=== PATIENT | female | born 1970 | race Caucasian/White ===

== ENCOUNTER 2022-03-08 20:11 | Emergency (ER) | payer OTHER ==
[~2022-03-08] VITALS: Ht 162.6 cm; Wt 77.0 kg
[2022-03-08] MEDS ORDERED: LABETALOL HCL VIAL 20 MG/4 ML VIAL IV ONE (21:00)
[2022-03-08] MEDS: LABETALOL 5MG/ML SYR 20 MG/4 ML SYRINGE IV NR (21:15)
[2022-03-08 21:16] LABS: HEMATOCRIT. 42.3 % (36.0-48.0); HEMOGLOBIN. 13.9 g/dL (12.0-16.0); MEAN CORPUSCULAR HEMOGLOBIN 29.7 pg (28.0-32.0); MEAN CORPUSCULAR VOLUME 90.4 fL (81.0-99.0); MEAN PLATELET VOLUME 9.2 fl (7.4-10.4); PLATELET 112 x1000/uL (130-400); RED BLOOD CELL COUNT 4.68 mill/uL (4.2-5.4); RED CELL DISTRIBUTION WIDTH 15.7 % (11.6-14.6)
[2022-03-08 21:24] LABS: CHLORIDE 101 mEq/L (98-107)
[2022-03-08 21:34] LABS: ETHANOL BLOOD < 10 mg/dL
[2022-03-08 22:08] LABS: PLATELET ESTIMATE DECREASED
[2022-03-08] MEDS ORDERED: HYDRALAZINE 20MG/ML VIAL IV ONE (22:45)
[2022-03-08] MEDS ORDERED: CLONIDINE 0.1MG TABLET PO NR (23:00)
[2022-03-08] MEDS ORDERED: MORPHINE SULFATE 4 MG/ML CPJ (NOT FOR IM USE) IV ONE ×2 (23:00→23:30)
[2022-03-08] MEDS ORDERED: ONDANSETRON HCL 4MG/2ML INJ IV ONE (23:15)
[2022-03-08] MEDS ORDERED: ACETAMINOPHEN 325MG TABLET PO ONE (23:45)
[2022-03-09] MEDS: LABETALOL 5MG/ML SYR 20 MG/4 ML SYRINGE IV NR ×2 (00:26→00:32)
[2022-03-09 00:50] VITALS: BP 187/73
== END 2022-03-09 02:00 | disposition short-term general hospital (02) ==
LOC: ER 20:11 → CANBEDREQ 03-09 14:10
DX: R51.9 Headache, unspecified (principal); M54.2 Cervicalgia; R11.2 Nausea with vomiting, unspecified; E11.22 Type 2 diabetes mellitus with diabetic chronic kidney disease; I12.0 Hypertensive chronic kidney disease with stage 5 chronic kidney disease or end stage renal disease; N18.6 End stage renal disease; J45.909 Unspecified asthma, uncomplicated; Z98.1 Arthrodesis status; Z99.2 Dependence on renal dialysis; Z79.01 Long term (current) use of anticoagulants; W01.0XXA Fall on same level from slipping, tripping and stumbling without subsequent striking against object, initial encounter; Y93.89 Activity, other specified; Y92.018 Other place in single-family (private) house as the place of occurrence of the external cause
CPT/HCPCS: 36415; 70450; 71045; 72125; 80053; 80320; 82140; 83605; 83880; 84484; 85025; 96374; 96375; 96376; 99285; J0360; J2270; J2405; J3490; G0480